=== PATIENT | female | born 1980 | race African-American/Black ===

== ENCOUNTER 2016-09-11 13:25 | Emergency (ER) | payer OTHER ==
[~2016-09-11] VITALS: Ht 172.7 cm; Wt 79.4 kg
[~2016-09-11 13:25] MED LIST: DIAMOX; INDERAL40 MG PO; LIDODERM 5%1 PATCH TOP; LIMBREL 500 MG500 MG PO; LISINOPRIL10 MG PO; METHADONE HCL5 MG PO; NORCO 5-325 TA1 EACH PO; NORCO 7.5-3251 EACH PO; PROPRANOLOL 1010 M1 PO; TRAMADOL 50 MG50 MG PO; TRAMADOL HCL50 MG PO; TRILEPTAL150 MG PO; TYLENOL EX-STR500 M2 PO; ZESTORETIC 20-1 EAC3 PO
[2016-09-11] MEDS ORDERED: ROBAXIN500 MG PO (15:50)
[2016-09-11] MEDS ORDERED: TRAMADOL 50 MG50 MG PO (15:50)
[2016-09-11] MEDS ORDERED: NAPROSYN500 MG PO (15:50)
== END 2016-09-11 16:12 | disposition home or self-care (01) ==
LOC: ER 13:25
DX: G43.809 Other migraine, not intractable, without status migrainosus (principal); G44.209 Tension-type headache, unspecified, not intractable; I10 Essential (primary) hypertension; Z98.2 Presence of cerebrospinal fluid drainage device; Z87.820 Personal history of traumatic brain injury; Z88.6 Allergy status to analgesic agent

== ENCOUNTER 2018-03-28 18:15 | Emergency (ER) | payer OTHER ==
[~2018-03-28] VITALS: Ht 154.9 cm; Wt 83.9 kg
[~2018-03-28 18:15] MED LIST changes: +NAPROSYN500 MG PO; +ROBAXIN500 MG PO
[2018-03-28] MEDS ORDERED: NORVASC5 MG PO (18:19)
[2018-03-28] MEDS ORDERED: BUTALB-APAP-CA1 EACH PO (18:28)
[2018-03-28] MEDS ORDERED: HYDRALAZINE 2525 MG PO (18:29)
[2018-03-28 19:11] LABS: ABSOLUTE NEUTROPHILS 8.6 thou/uL (1.4-8.2); BASOPHILS 0.3 % (0.0-2.0); EOSINOPHILS 0.4 % (0.0-3.0); HEMATOCRIT 38.6 % (37.0-47.0); HEMOGLOBIN 12.8 gm/dL (12.0-15.0); LYMPHOCYTES 15.4 % (24.0-44.0); MCH 32.8 pg (26.0-34.0); MCHC 33.3 g/dL (28.0-37.0); MCV 98.6 fL (80.0-100.0); PLATELET COUNT 389 thou/uL (150-400); POLYS 75.9 % (36.0-66.0); RBC 3.91 mil/uL (4.20-5.00); RDW 14.5 % (10.5-14.5); WBC 11.3 thou/uL (4.0-11.0)
[2018-03-28 19:18] LABS: ANION GAP 8 mmol/L (7-16); BUN 15 mg/dL (7-18); CALCIUM 9.5 mg/dL (8.5-10.1); CHLORIDE 97 mmol/L (98-107); CO2 33 mmol/L (21-32); CREATININE 1.7 mg/dL (0.6-1.0); GLUCOSE 126 mg/dL (74-106); POTASSIUM 3.1 mmol/L (3.5-5.1); SODIUM 138 mmol/L (136-145)
[2018-03-28 19:27] LABS: TROPONIN-I <0.06 ng/mL (<0.06)
[2018-03-28 20:56] LABS: CREATININE 1.1 mg/dL (0.6-1.0)
[2018-03-28] MEDS ORDERED: ZOFRAN4 MG PO (21:20)
[2018-03-28 21:36] VITALS: BP 119/70
--- NOTE | 2018-03-30 15:04 | EKG ---
[address] [address] ELECTROCARDIOGRAM REPORT Name: CRISTINA POZO Room #: [facility]#: [id number] Admission: 03/28/18 Attend Phys: Discharge: 03/28/18 Date of : 78 Report #: [id number] THIS REPORT FOR: //name// [facility] ED Test Date: 2018-03-28 Test Time: 18:18:23 Pat Name: CRISTINA POZO Department: Room: Gender: F Fitter/Welder: : 1980 Requested By: Katlyn Solorzano Order Number: [id number] MD: Jeff Fuchs Measurements Intervals [place] Rate: 89 P: 57 PA: 145 QRS: 11 QRSD: 121 T: 44 QT: 455 QTc: 554 Interpretive Statements Sinus rhythm Nonspecific intraventricular conduction delay Compared to ECG 11/06/2004 18:24:01 Intraventricular conduction delay now present Electronically Signed On 03-30-2018 15:04:20 [employer]ILD[employer] WORK[employer] by Jeff Fuchs [email or web address] <ELECTRONICALLY SIGNED> By: Jeff Fuchs MD 03/30/18 1504 D: 12/1817 17 Jeff Fuchs MD /JACKY
== END 2018-03-28 21:37 | disposition home or self-care (01) ==
LOC: ER 18:15
PROVIDERS: Student in an Organized Health Care Education/Training Program
DX: E86.0 Dehydration (principal); R55 Syncope and collapse; E87.6 Hypokalemia; I10 Essential (primary) hypertension; G43.909 Migraine, unspecified, not intractable, without status migrainosus; Z88.6 Allergy status to analgesic agent